=== PATIENT | female | born 1985 | race Caucasian/White ===

== ENCOUNTER 2017-06-05 06:07 | Emergency (ER) | payer BC ==
[2017-06-05] MEDS ORDERED: Metoclopramide IV* 5 MG/ML 2 ML VIAL IV ONE (06:33)
[2017-06-05] MEDS ORDERED: Famotidine IV* 10 MG/ML 2 ML (20 mg) IV ONE (06:33)
[2017-06-05] MEDS: NS 0.9% 1000 ML* 2,000 ML IV ONE (07:09)
[2017-06-05 07:31] LABS: ABS Basophils 0 10^3/ul (0-0.2); ABS Eosinophils 0.1 10^3/ul (0-0.6); ABS Lymphocytes 1.9 10^3/ul (1.0-4.8); ABS Monocytes 0.5 10^3/ul (0-0.8); ABS Neutrophils 5.2 10^3/ul (1.5-7.7); ABS Nucleated RBC 0 10^3/ul; Eosinophil % 1.5 % (0-6); Hematocrit 40 % (35-47); Hemoglobin 14.1 g/dl (12.0-16.0); Lymphocyte % 24.8 % (25-47); Mean Corpuscular HGB Conc 35 g/dl (31-36); Mean Corpuscular Hemoglobin 32 pg (27-31); Mean Corpuscular Volume 93 fL (80-97); Mean Platelet Volume 9 um3 (7.4-10.4); Nucleated Red Blood Cells % 0; Platelet Count 173 10^3/ul (150-450); Red Blood Count 4.36 10^6/ul (4.0-5.4); Red Cell Distribution Width 12 % (10.5-15); White Blood Count 7.8 10^3/ul (3.5-10.8)
[2017-06-05 07:48] LABS: EGFR Non-African American 98.6 (>60)
--- NOTE | 2017-06-05 08:29 | RAD ---
Indication: with pelvic pain. Real-time sonography of the pelvis was performed utilizing transabdominal technique. There is a single intrauterine gestation with a crown-rump length of 2.7 cm corresponding to gestational age of 9 weeks 4 days. Estimated date of delivery is January 04, 2018. heart activity is noted at 1 to 70 bpm. movement is noted. Amniotic fluid is within normal limits. Right ovary measures 4.6 x 2.3 x 2.1 cm. Left ovary measures 4.1 x 1.5 x 2.8 cm. Doppler interrogation demonstrates flow in both ovaries. IMPRESSION: No adnexal masses are noted. There is a single intrauterine gestation with a gestational age of 9 weeks 4 days. Estimated date of delivery is January 04, 2018.
--- NOTE | 2017-06-05 09:31 | ED ---
Jonathan Rodriguez Angela, scribed for Monica Dumont MD on 06/05/17 at 0744 . Progress - Progress Note Progress Note: This pt was signed out by Dr. Portillo, pending disposition, awaiting transvaginal US. Pt is a 31 y/o female presenting to [facility] c/o nausea and vomiting for a couple weeks. Pt notes she has her first ObGyn appointment tomorrow. Pt will be discharged to home in stable condition. She is advised to follow up with her ObGyn tomorrow. - Results/Orders Results/Orders: Transvaginal US, as read by radiologist: IMPRESSION: No adnexal masses are noted. There is a single intrauterine gestation with a gestational age of 9 weeks 4 days. Estimated date of delivery is January 04, [address]. Dr. Dumont has reviewed this radiology report. Re-Evaluation - Re-Evaluation First Eval Re-Evaluation Time: 08:58 Change: Improved Comment: Pt reports feeling better, without nausea and vomiting. Course/Dx - Course Course Of Treatment: Ultrasound shows IUP, gestational age of 9 weeks 4 days. Labs are normal. Pt will be discharged to home in stable condition. She is advised to follow up with her ObGyn tomorrow. - Diagnoses Provider Diagnoses: , Vomiting The documentation as recorded by the Jonathan alvarado Angela accurately reflects the service I personally performed and the decisions made by , Monica Dumont MD.
[2017-06-05 09:56] VITALS: BP 99/65
--- NOTE | 2017-06-07 06:06 | ED ---
Pamella Rodriguez Gabriel, scribilda for Francisco J Portillo MD on 06/05/17 at 0643 . GI/ HPI - HPI Summary HPI Summary: This patient is a 31 year old F presenting to [facility] accompanied by boyfriend with a chief complaint of n/v for a couple weeks. The patient rates the pain 5/ 10 in severity. Patient denies ABD pain, vaginal bleeding and cramps. She is recently . She took a home test and estimates she is about 9 weeks along. - History of Current Complaint Chief Complaint: EDNauseaVomitDiarrh Time Seen by Provider: 06/05/17 06:28 Stated Complaint: VOMITING, 9 WEEKS PREG Hx Obtained From: Patient Onset/Duration: Started Weeks Ago - 2, Still Present Timing: Constant Severity: Moderate Current Severity: Moderate Pain Intensity: 5 Associated Signs and Symptoms: Positive: Negative - abd pain vaginal bleeding and cramping, Other: - n/v - Allergy/Home Medications Allergies/Adverse Reactions: Allergies Allergy/AdvReac Type Severity Reaction Status Date / Time No Known Allergies Allergy Verified 06/05/17 06:13 PMH/Surg Hx/FS Hx/Imm Hx Cardiovascular History: Denies: Hx Myocardial Infarction Respiratory History: Denies: Hx Chronic Obstructive Pulmonary Disease (COPD) GI History: Denies: Hx Cirrhosis, Hx Crohn's Disease History: Denies: Hx Acute Renal Failure, Hx Benign Prostatic Hyperplasia Musculoskeletal History: Denies: Hx Arthritis Sensory History: Denies: Hx Eye Injury, Hx Legally Blind EENT History: Denies: Hx Deafness Neurological History: Denies: Hx CVA, Hx Dementia Infectious Disease History: No Infectious Disease History: Denies: Traveled Outside the [place] in Last 30 Days - Family History Known Family History: Negative: Seizure Disorder, Blood Disorder Review of Systems Positive: Vomiting, Nausea. Negative: Abdominal Pain Genitourinary: Negative - vagina bleeding and cramping All Other Systems Reviewed And Are Negative: Yes Physical Exam - Summary Physical Exam Summary: VITAL SIGNS: Reviewed. GENERAL: Patient is a well-developed and nourished female who is lying comfortable in the stretcher. Patient is not in any acute respiratory distress. HEAD AND FACE: No signs of trauma. No ecchymosis, hematomas or skull depressions. No sinus tenderness. EYES: PERRLA, EOMI x 2, No injected conjunctiva, no nystagmus. EARS: Hearing grossly intact. Ear canals and tympanic membranes are within normal limits. MOUTH: Oropharynx within normal limits. NECK: Supple, trachea is midline, no adenopathy, no JVD, no carotid bruit, no c- spine tenderness, neck with full ROM. CHEST: Symmetric, no tenderness at palpation LUNGS: Clear to auscultation bilaterally. No wheezing or crackles. CVS: Regular rate and rhythm, S1 and S2 present, no murmurs or gallops appreciated. ABDOMEN: Soft, non-tender. No signs of distention. No rebound no guarding, and no masses palpated. Bowel sounds are normal. EXTREMITIES: FROM in all major joints, no edema, no cyanosis or clubbing. NEURO: Alert and oriented x 3. No acute neurological deficits. Speech is normal and follows commands. SKIN: Dry and warm Triage Information Reviewed: Yes Vital Signs On Initial Exam: Initial Vitals Temp Pulse Resp BP Pulse Ox 98.4 F 101 16 132/79 99 06/05/17 06:09 06/05/17 06:09 06/05/17 06:09 06/05/17 06:09 06/05/17 06:09 Vital Signs Reviewed: Yes Diagnostics - Vital Signs Vital Signs Temp Pulse Resp BP Pulse Ox 06/05/17 06:09 98.4 F 101 16 132/79 99 - Laboratory Lab Results: Lab Results 06/05/17 06/05/17 Range/Units 06:59 06:59 WBC 7.8 (3.5-10.8) 10^3/ul RBC 4.36 (4.0-5.4) 10^6/ul Hgb 14.1 (12.0-16.0) g/dl Hct 40 (35-47) % MCV 93 (80-97) fL MCH 32 H (27-31) pg MCHC 35 (31-36) g/dl RDW 12 (10.5-15) % Plt Count 173 (150-450) 10^3/ul MPV 9 (7.4-10.4) um3 Neut % (Auto) 66.3 (38-83) % Lymph % (Auto) 24.8 L (25-47) % [place] % (Auto) 7.0 (1-9) % Eos % (Auto) 1.5 (0-6) % Baso % (Auto) 0.4 (0-2) % Absolute Neuts (auto) 5.2 (1.5-7.7) 10^3/ul Absolute Lymphs (auto) 1.9 (1.0-4.8) 10^3/ul Absolute Monos (auto) 0.5 (0-0.8) 10^3/ul Absolute Eos (auto) 0.1 (0-0.6) 10^3/ul Absolute Basos (auto) 0 (0-0.2) 10^3/ul Absolute Nucleated RBC 0 10^3/ul Nucleated RBC % 0 Sodium 134 (133-145) mmol/L Potassium 3.7 (3.5-5.0) mmol/L Chloride 103 (101-111) mmol/L Carbon Dioxide 24 (22-32) mmol/L Anion Gap 7 (2-11) mmol/L BUN 13 (6-24) mg/dL Creatinine 0.69 (0.51-0.95) mg/dL Est GFR ( Amer) 126.8 (>60) Est GFR (Non-Af Amer) 98.6 (>60) BUN/Creatinine Ratio 18.8 (8-20) Glucose 96 (70-100) mg/dL Calcium 9.2 (8.6-10.3) mg/dL Total Bilirubin 0.70 (0.2-1.0) mg/dL AST 20 (13-39) U/L ALT 17 (7-52) U/L Alkaline Phosphatase 51 (34-104) U/L Total Protein 6.6 (6.4-8.9) g/dL Albumin 4.1 (3.2-5.2) g/dL Globulin 2.5 (2-4) g/dL Albumin/Globulin Ratio 1.6 (1-3) Beta HCG, Quant 426438.00 mIU/mL Result Diagrams: 06/05/17 06:59 06/05/17 06:59 Lab Statement: Any lab studies that have been ordered have been reviewed, and results considered in the medical decision making process. Re-Evaluation - Re-Evaluation First Eval Re-Evaluation Time: 08:58 Change: Improved Comment: Pt reports feeling better, without nausea and vomiting. GIGU Course/Dx - Diagnoses Provider Diagnoses: , Vomiting Discharge - Discharge Plan Condition: Stable Disposition: HOME Discharge Disposition Comment: Patient is signed out to Dr. Dumont, pending disposition, awaiting US Prescriptions: Ondansetron ODT TAB* [Zofran 4 MG Odt TAB*] 4 mg PO Q8H PRN #20 tab.odt MDD 3 PRN Reason: vomiting Patient Education Materials: Nausea and Vomiting in (ED), First Trimester (ED) Forms: *Work Release Referrals: Dilma SILVERMAN,Antoinette Chen [Primary Care Provider] - Additional Instructions: return if worse or any new symptoms. Take all medications as previously instructed. Drink plenty of fluids. The documentation as recorded by the Pamella alvarado Gabriel accurately reflects the service I personally performed and the decisions made by me, Francisco J Portillo MD.
== END 2017-06-05 09:54 | disposition home or self-care (01) ==
LOC: ED 06:07
DX: R11.2 Nausea with vomiting, unspecified (principal); Z34.91 Encounter for supervision of normal pregnancy, unspecified, first trimester
CPT/HCPCS: 36415; 76801; 80053; 84702; 85025; 96374; 96375; 99283; J2765

== ENCOUNTER 2018-01-04 23:50 | Inpatient (IN) | payer BC ==
--- NOTE | 2018-01-05 01:01 | HP ---
General Information - General Information Maternal Age: 32 Grav: 2 Para: 0 SAB: 0 IEA: 0 Estimated Due Date: 01/04/18 Determined By: Early Ultrasound Maternal Blood Type and Rh: O Positive - Results this Serology/RPR Result: Non-Reactive Rubella Result: Non-Immune HBsAg Result: Negative HIV Result: Negative GBS Culture Result: Negative Past Medical History Delivery History: See Records - Primiparous Pertinent Past Medical History: Non-Contributory Pertinent Past Surgical History: See Records - wisdom tooth extraction Pertinent Family History: Non-Contributory - Antepartal Records Antepartal Records: Reviewed, Uncomplicated Review of Systems Constitutional: Uncomfortable CV Complaint: No Respiratory: Shortness of Breath: No Gastrointestinal: No Nausea/Vomiting Genitourinary: Leaking Fluid, No Dysuria, No Bleeding Musculoskeletal: Contractions Neurological: No Headache, No Visual Changes Movement: Normal Exam Allergies/Adverse Reactions: Allergies No Known Allergies Allergy (Verified 06/05/17 06:13) T-98.1, P-64, R-18, BP-109/68, O2-99% - Measurements Height: 5 ft 4 in Weight: 68.492 kg Weight in lbs: 151.020130 Body Mass Index (BMI): 25.9 Pre- Weight: 56.699 kg Weight Gained This : 26 lbs and 0 ozs - Exam Breast: Breast Exam Deferred CVA: No CVA Tenderness Extremities: No Edema Heart: Normal Rhythm/Heart Sounds HEENT: No Significant Findings Lungs: Clear Bilaterally Rectal: Rectal Exam Deferred Reflexes: DTR 2+ Thyroid: No Thyromegaly - Abdominal Exam Abdomen Exam: Non-Tender, Fundal Height Consistent with Dates - Ultrasound/Biophysical Profile Ultrasound Status: Not Done Targeted Exam Findings See L&D Outpatient Visit Provider Note for Findings: N/A Estimated Weight: 7# Cervical Exam: 3cm Effacement: 100% Station: 0 Presenting Part: Vertex Membrane Status: SROM Amniotic Fluid Evaluation: Gross Rupture Bleeding/Discharge: None EFM Findings - External Monitor Findings Baseline Heart Rate: 125 External Monitor Findings: Accelerations Present, No Pattern of Variable or Late Decelerations, Variability Moderate, Baseline Stable Contractions: Regular, Strong, 45-90 Seconds Contraction Frequency: 2-3 minutes Assessment/Plan - Assessment 32 year old at 40 1/7 weeks gestation with ruptured membranes in active labor, no evidence of acidemia - Plan Plan: Admit - Anticipate Vaginal Delivery - Date/Time of Admission Date of Admission: 01/05/18 Time of Admission: 00:21
[2018-01-05 01:22] LABS: ABS Basophils 0.1 10^3/ul (0-0.2); ABS Eosinophils 0 10^3/ul (0-0.6); ABS Lymphocytes 2.5 10^3/ul (1.0-4.8); ABS Monocytes 0.8 10^3/ul (0-0.8); ABS Neutrophils 7.5 10^3/ul (1.5-7.7); ABS Nucleated RBC 0 10^3/ul; Eosinophil % 0.4 % (0-6); Hematocrit 40 % (35-47); Hemoglobin 13.7 g/dl (12.0-16.0); Lymphocyte % 23.2 % (25-47); Mean Corpuscular HGB Conc 35 g/dl (31-36); Mean Corpuscular Hemoglobin 33 pg (27-31); Mean Corpuscular Volume 96 fL (80-97); Mean Platelet Volume 10.7 um3 (7.4-10.4); Nucleated Red Blood Cells % 0; Platelet Count 152 10^3/ul (150-450); Red Blood Count 4.14 10^6/ul (4.00-5.40); Red Cell Distribution Width 13 % (10.5-15)
[2018-01-05] MEDS ORDERED: OBEPIDURAL* 250 ML EPIDURAL ONE (01:38)
[2018-01-05] MEDS ORDERED: Phenylephrine IV* 40 MCG/ML 10 ML SYRINGE IV PUSH PRN ×2 (02:25)
[2018-01-05] MEDS ORDERED: EPHEDrine (Pressors)* 50 MG/ML VIAL IV PUSH PRN ×2 (02:25)
[2018-01-05] MEDS ORDERED: Famotidine TAB* 20 MG PO PRN (02:25)
[2018-01-05] MEDS ORDERED: Sodium Citrate/Citric Acid* 15 ML UDC PO PRN (02:25)
[2018-01-05] MEDS ORDERED: fentaNYL* 50 MCG/ML 2 ML VIAL (100 MCG VIAL) ONE (02:38)
[2018-01-05] MEDS ORDERED: OBEPIDURAL* 250 ML EPIDURAL SCH (03:00)
[2018-01-05] MEDS ORDERED: Oxytocin in LR* 20 UNITS/1,000 ML BAG IVPB ONE (10:25)
[2018-01-05] MEDS ORDERED: Glycerin ADULT SUPP PR PRN (11:46)
[2018-01-05] MEDS ORDERED: Dibucaine 1% 28.35 GM TUBE PR PRN (11:46)
[2018-01-05] MEDS ORDERED: Witch Hazel PAD* JAR TOPICAL PRN (11:46)
--- NOTE | 2018-01-05 11:53 | PROCNOTE ---
[facility] OB: Delivery Note - Delivery A Date of : 01/05/18 Time of : 11:29 [place] Sex: Male Weight at : 7 lb Score 1 Minute: 9 Score 5 Minutes: 9 Gestational Age in Weeks and Days at Delivery: 40 Weeks and 1 Days Delivery Method: Spontaneous Vaginal Labor: Spontaneous Did Patient attempt ?: N/A, No Previous Amniotic Fluid: Clear Estimated Blood Loss: 300 Anesthesia/Analgesia: CEI for Labor Anesthesia Comment: Dr. Barr Delivered By: Sawyer Gonzalez - Nursery Level of Nursery: Regular/Bedside - Perineum Perineal Injury: None/Intact Perineal Repair: None - Additional Delivery Notes Additional Delivery Notes: Pt admitted in labor with expected progression to complete. Length of labor 14 hours, 35 min. Pushed x 1 hour, 24 min. Category II FHT with pushing. Variable decels down to 80bpm. Recovered well between UCs with O2 by mask and increased IV fluids. Moderate variability maintained throughout second stage. liveborn male. Slow, controlled delivery of head. OA to BILLIE. Shoulders followed with strong maternal push. [place] vigorous with spontaneous cry. HR> 110bpm. Delivered to maternal abdomen. Cord clamped x 2 and cut by FOB when pulsations ceased. Spontaneous delivery intact placenta. Membranes complete. Fundus firm to massage with IV pitocin infusing and remained firm. Perineum intact. No repair needed as above. EBL 300mL. At time of note mother and in stable condition. Planning to breast feed.
[2018-01-05] MEDS ORDERED: Oxytocin in LR* 20 UNITS/1,000 ML BAG IVPB SCH (12:00)
[2018-01-05] MEDS: Ibuprofen TAB* 600 MG PO PRN ×2 (12:53→18:12)
[2018-01-05] MEDS: Docusate CAP* 100 MG PO SCH ×2 (12:53→21:26)
[2018-01-06] MEDS: Acetaminophen TAB* 325 MG PO PRN ×4 (01:55→18:44)
[2018-01-06] MEDS: Ibuprofen TAB* 600 MG PO PRN ×4 (01:55→22:31)
[2018-01-06] MEDS: Simethicone TAB* 80 MG TAB.CHEW PO SCH ×2 (04:51→11:29)
[2018-01-06 06:14] LABS: ABS Basophils 0.1 10^3/ul (0-0.2); ABS Eosinophils 0.1 10^3/ul (0-0.6); ABS Lymphocytes 2.1 10^3/ul (1.0-4.8); ABS Monocytes 0.6 10^3/ul (0-0.8); ABS Neutrophils 8.7 10^3/ul (1.5-7.7); ABS Nucleated RBC 0 10^3/ul; Eosinophil % 0.6 % (0-6); Hematocrit 29 % (35-47); Lymphocyte % 17.8 % (25-47); Mean Corpuscular HGB Conc 35 g/dl (31-36); Mean Corpuscular Hemoglobin 33 pg (27-31); Mean Corpuscular Volume 97 fL (80-97); Mean Platelet Volume 9.4 um3 (7.4-10.4); Nucleated Red Blood Cells % 0; Platelet Count 104 10^3/ul (150-450); Red Blood Count 2.99 10^6/ul (4.00-5.40); Red Cell Distribution Width 13 % (10.5-15); White Blood Count 11.5 10^3/ul (3.5-10.8)
[2018-01-06] MEDS: Docusate CAP* 100 MG PO SCH ×3 (08:22→22:31)
[2018-01-06] MEDS ORDERED: Measles, Mumps,Rubella VACC* 0.5 ML/VIAL SUBCUT ONE (09:00)
[2018-01-06] MEDS: Ferrous Gluconate TAB* 324 MG TAB PO SCH ×2 (12:50→22:31)
--- NOTE | 2018-01-06 16:14 | PTEDU ---
Patient Name: MELY GURROLA GALILEO MELY selected video: BBOB: Nurturing Your Gorgeous &Growing Baby by to view on 01/06/2018 at 4:13:35 PM [id number]
[2018-01-07] MEDS: Ferrous Gluconate TAB* 324 MG TAB PO SCH (07:51)
[2018-01-07] MEDS: Ibuprofen TAB* 600 MG PO PRN ×2 (07:52→14:28)
[2018-01-07] MEDS: Docusate CAP* 100 MG PO SCH ×2 (07:52→14:28)
[2018-01-07 08:10] VITALS: BP 105/67
--- NOTE | 2018-01-07 15:45 | PTEDU ---
Patient Name: MELY GURROLA MELVA GURROLAINA selected video: BBOB: Bonding Through Infant Massage to view on 01/07/2018 at 3:44:51 PM from [id number]
== END 2018-01-07 18:23 | disposition home or self-care (01) | DRG 560 ==
LOC: MCHOBOUT 23:50 → MCHOB 01-05 00:22
PROVIDERS: ADMIT Midwife; ATTEND Midwife
PROC: 10E0XZZ Delivery of Products of Conception, External Approach (ICD-10-PCS; principal; 2018-01-05)
DX: O48.0 Post-term pregnancy (principal); O90.81 Anemia of the puerperium; D64.9 Anemia, unspecified; Z3A.40 40 weeks gestation of pregnancy; Z37.0 Single live birth
CPT/HCPCS: 36415; 85025; 86850; 86900; 86901; 90707; A9270-GY; J3010

== ENCOUNTER 2019-09-23 17:39 | Inpatient (IN) | payer BC ==
[2019-09-23 18:36] LABS: Urine Benzodiazepine Screen None Detected (None Detect); Urine Opiates Screen None Detected (None Detect)
[2019-09-23 19:59] LABS: Hematocrit 37 % (35-47); Hemoglobin 12.8 g/dL (12.0-16.0); Mean Corpuscular HGB Conc 35 g/dL (31-36); Mean Corpuscular Hemoglobin 33 pg (27-31); Mean Corpuscular Volume 94 fL (80-97); Mean Platelet Volume 9.7 fL (7.4-10.4); Platelet Count 152 10^3/uL (150-450); Red Cell Distribution Width 13 % (10-15); White Blood Count 11.3 10^3/uL (3.5-10.8)
[2019-09-23 20:01] LABS: Urine Appearance Clear; Urine Bilirubin Negative (Negative); Urine Blood 3+ (Negative); Urine Color Yellow; Urine Glucose Negative (Negative); Urine Ketones 1+ (Negative); Urine Nitrite Negative (Negative); Urine Protein Negative (Negative); Urine Urobilinogen Negative (Negative)
[2019-09-23 20:04] LABS: Urine Bacteria Absent (Absent); Urine Red Blood Cell 3+(>10/hpf) (Absent); Urine Squamous Epithelial Cell Present (Absent); Urine White Blood Cell 3+(>20/hpf) (Absent)
[2019-09-23 20:07] LABS: Platelet Count 152 10^3/ul (150-450)
[2019-09-23 20:20] LABS: Albumin 3.7 g/dL (3.2-5.2); Albumin/Globulin Ratio 1.3 (1-3); BUN/Creatinine Ratio 26.2 (8-20); Calcium 8.6 mg/dL (8.6-10.3); EGFR African American 135.9 (>60); EGFR Non-African American 112.3 (>60); Globulin 2.9 g/dL (2-4); Potassium 3.7 mmol/L (3.5-5.0); Total Bilirubin 0.4 mg/dL (0.2-1.0); Total Protein 6.6 g/dL (6.4-8.9); Uric Acid 5.2 mg/dL (2.3-6.6)
[2019-09-23 20:22] LABS: Activated Partial Thrombo Time 27.3 seconds (26.0-38.0); Fibrinogen 489.9 mg/dL (110.8-404.3); INR 0.89 (0.82-1.09)
[2019-09-23] MEDS ORDERED: Penicillin G Potassium IV* 5 MILLION.UNITS VIAL ONE (20:35)
[2019-09-23] MEDS ORDERED: Lactated Ringers 1000 ML Bag* 1,000 ML IV ONE (20:45)
[2019-09-23] MEDS ORDERED: Buffered Lidocaine 1% SYRIN* 1 ML/SYRINGE INTRADERM ONE (20:45)
[2019-09-23 20:59] LABS: Schistocytes ABSENT
[2019-09-23] MEDS ORDERED: Penicillin G Potassium IV* 5,000,000 UNITS in NS 0.9% 100 ML* 100 ML IVPB ONE (21:00)
--- NOTE | 2019-09-23 21:15 | HP ---
General Information - Reason for Visit Vaginal bleeding and contractions - General Information Maternal Age: 33 Grav: 3 Para: 1 SAB: 0 IEA: 1 Estimated Due Date: 10/11/19 Determined By: Early Ultrasound Maternal Blood Type and Rh: O Positive - Results this Serology/RPR Result: Non-Reactive Rubella Result: Immune HBsAg Result: Negative HIV Result: Negative GBS Culture Result: Positive Past Medical History Delivery History: Hx Uncomplicated Vaginal Delivery - SVB 01/2018 Pertinent Past Medical History: Non-Contributory Pertinent Past Surgical History: See Records Past Surgical History Comment: [place] teeth Pertinent Family History: See Records Family History Comment: breast cancer dementia diabetes kidney disease - Antepartal Records Antepartal Records: Reviewed, Complicated by: - GBS Review of Systems Constitutional: Uncomfortable CV Complaint: No Respiratory: Shortness of Breath: No Gastrointestinal: No Nausea/Vomiting, Normal Bowel Movement Genitourinary: Bleeding, Leaking Fluid Musculoskeletal: Contractions Neurological: No Headache, No Visual Changes Movement: Normal Exam Allergies/Adverse Reactions: Allergies No Known Allergies Allergy (Verified 01/05/18 01:25) Lab Values - Entire Visit: Laboratory Tests 09/23/19 09/23/19 09/23/19 17:55 19:45 19:45 WBC 11.3 H RBC 3.90 Hgb 12.8 Hct 37 MCV 94 MCH 33 H MCHC 35 RDW 13 Plt Count 152 MPV 9.7 Schistocytes INR (Anticoag Therapy) APTT Fibrinogen D-Dimer, Quantitative Sodium 135 Potassium 3.7 Chloride 106 Carbon Dioxide 20 L Anion Gap 9 BUN 16 Creatinine 0.61 Est GFR ( Amer) 135.9 Est GFR (Non-Af Amer) 112.3 BUN/Creatinine Ratio 26.2 H Glucose 82 Uric Acid 5.2 Calcium 8.6 Total Bilirubin 0.40 AST 21 ALT 14 Alkaline Phosphatase 171 H Total Protein 6.6 Albumin 3.7 Globulin 2.9 Albumin/Globulin Ratio 1.3 Urine Color Urine Appearance Urine pH Ur Specific [place] Urine Protein Urine Ketones Urine Blood Urine Nitrate Urine Bilirubin Urine Urobilinogen Ur Leukocyte Esterase Urine WBC (Auto) Urine RBC (Auto) Ur Squamous Epith Cells Urine Bacteria Urine Glucose Vag Amniotic Fld Detect Urine Opiates Screen None detected Ur Barbiturates Screen None detected Ur Phencyclidine Scrn None detected Ur Amphetamines Screen None detected U Benzodiazepines Scrn None detected Urine Cocaine Screen None detected U Cannabinoids Screen None detected Blood Type Antibody Screen 09/23/19 09/23/19 09/23/19 19:45 19:45 19:45 WBC RBC Hgb Hct MCV MCH MCHC RDW Plt Count 152 MPV Schistocytes Absent INR (Anticoag Therapy) 0.89 APTT 27.3 Fibrinogen 489.9 H D-Dimer, Quantitative 702 H Sodium Potassium Chloride Carbon Dioxide Anion Gap BUN Creatinine Est GFR ( Amer) Est GFR (Non-Af Amer) BUN/Creatinine Ratio Glucose Uric Acid Calcium Total Bilirubin AST ALT Alkaline Phosphatase Total Protein Albumin Globulin Albumin/Globulin Ratio Urine Color Yellow Urine Appearance Clear Urine pH 6.0 Ur Specific [place] 1.010 Urine Protein Negative Urine Ketones 1+ A Urine Blood 3+ A Urine Nitrate Negative Urine Bilirubin Negative Urine Urobilinogen Negative Ur Leukocyte Esterase Negative Urine WBC (Auto) 3+(>20/hpf) A Urine RBC (Auto) 3+(>10/hpf) A Ur Squamous Epith Cells Present A Urine Bacteria Absent Urine Glucose Negative Vag Amniotic Fld Detect Urine Opiates Screen Ur Barbiturates Screen Ur Phencyclidine Scrn Ur Amphetamines Screen U Benzodiazepines Scrn Urine Cocaine Screen U Cannabinoids Screen Blood Type O Positive Antibody Screen Negative 09/23/19 19:45 WBC RBC Hgb Hct MCV MCH MCHC RDW Plt Count MPV Schistocytes INR (Anticoag Therapy) APTT Fibrinogen D-Dimer, Quantitative Sodium Potassium Chloride Carbon Dioxide Anion Gap BUN Creatinine Est GFR ( Amer) Est GFR (Non-Af Amer) BUN/Creatinine Ratio Glucose Uric Acid Calcium Total Bilirubin AST ALT Alkaline Phosphatase Total Protein Albumin Globulin Albumin/Globulin Ratio Urine Color Urine Appearance Urine pH Ur Specific [place] Urine Protein Urine Ketones Urine Blood Urine Nitrate Urine Bilirubin Urine Urobilinogen Ur Leukocyte Esterase Urine WBC (Auto) Urine RBC (Auto) Ur Squamous Epith Cells Urine Bacteria Urine Glucose Vag Amniotic Fld Detect Positive Urine Opiates Screen Ur Barbiturates Screen Ur Phencyclidine Scrn Ur Amphetamines Screen U Benzodiazepines Scrn Urine Cocaine Screen U Cannabinoids Screen Blood Type Antibody Screen - Measurements Height: 5 ft 4 in Weight: 141 lb Weight in lbs: 141.628675 Body Mass Index (BMI): 24.2 Pre- Weight: 125 lb Weight Gained This : 16 lbs and 0 ozs - Exam Breast: Breast Exam Deferred CVA: No CVA Tenderness Extremities: No Edema Thyroid: - - WNL @ entry to care - Abdominal Exam Abdomen Exam: Non-Tender, Fundal Height Consistent with Dates - Ultrasound/Biophysical Profile Ultrasound Status: Not Done Targeted Exam Findings Estimated Weight: 7lb Cervical Exam: 2cm Effacement: 60% Station: -1 Presenting Part: Vertex Membrane Status: Leaking Amniotic Fluid Evaluation: Positive ROM Plus Bleeding/Discharge: Amber bleeding EFM Findings - External Monitor Findings Baseline Heart Rate: 125 External Monitor Findings: Accelerations Present, No Pattern of Variable or Late Decelerations, Variability Moderate Contractions: Regular, Mild, Moderate, 45-90 Seconds Contraction Frequency: q 2-5 min Assessment/Plan - Assessment IUP @ 37+3 weeks gestation with rupture of membranes and amber bleeding in early labor. No evidence acidemia. - Obstetrical Risk Factors Obstetrical Risk Factors: GBS Positive - Plan Plan: Admit - Anticipate Vaginal Delivery Plan Comment: Admit to L&D. Labwork pending. Anticipate SVB. - Date/Time of Admission Date of Admission: 09/23/19 Time of Admission: 20:27
[2019-09-24] MEDS ORDERED: Promethazine INJ(RESTRICTED)* 25 MG/ML 1 ML VIAL IV PRN (00:30)
[2019-09-24] MEDS ORDERED: Morphine 10 MG/ML VIAL (1 ml) IV ONE (00:30)
--- NOTE | 2019-09-24 00:30 | PN ---
Progress Note - Progress Note Date of Service: 09/24/19 Note: S: Patient reports feeling contractions but they are still fairly mild. Tired and feeling like she would like to sleep but struggling because of discomfort. O: VE deferred FHT 125, +accels, no decels, mod asmita UCs q 2-5 min VSS, afebrile A: IUP @ 37+4 weeks gestation Ruptured membranes No evidence acidemia P: PARQ discussion therapeutic rest with morphine/phenergan. Patient in agreement. Plan to reassess as needed.
[2019-09-24] MEDS: Penicillin G Potassium IV* 3,000,000 UNITS in NS 0.9% 100 ML* 100 ML IVPB SCH ×6 (01:34→21:19)
[2019-09-24] MEDS ORDERED: Oxytocin in LR* 20 UNITS/1,000 ML BAG IVPB ONE (06:38)
[2019-09-24] MEDS ORDERED: Oxytocin in LR* 20 UNITS/1,000 ML BAG IVPB SCH ×2 (07:00→20:00)
--- NOTE | 2019-09-24 07:51 | PN ---
Progress Note - Progress Note Date of Service: 09/24/19 Note: S: Feeling comfortable, got some sleep. Still feeling "dozy" from medications. O: VE deferred FHT 130, +accels, no decels, mod asmita UCs q 3-6 min VSS, afebrile A: IUP @ 37+4 weeks gestation with vaginal bleeding, spontaneous rupture of membranes No evidence acidemia P: Recommend low-dose pitocin and patient in agreement. Will initiate and titrate per protocol. Expect progression to active labor. Report to oncoming physician relations representative, Hina Nation CNM to continue management.
[2019-09-24] MEDS: Lactated Ringers 1000 ML Bag* 1,000 ML IV SCH ×2 (09:02→21:16)
--- NOTE | 2019-09-24 12:13 | PN ---
Progress Note - Progress Note Date of Service: 09/24/19 Note: S: Has been sleeping on and off. States contractions are worse while in bed and less while standing. O: B/P: 116/65, P: 91, R: 18, T: 99.1 FHR: baseline 135, moderate variability, + accelerations, no decelerations UCs: q 2-3 min, moderate to palpation. VE: 2/80/-2, posterior. [place]-tinged fluid. SROM x 19 hrs. A: IUP at 37 4/7 weeks Category I FHR, no evidence of metabolic acidemia No evidence of chorioamnionitis Not yet in labor P: Discontinue pitocin, if UCs space out will give 50 mcg misoprostol PO Continue GBS prophylaxis per protocol Reassess PRN Anticipate SVB
[2019-09-24] MEDS ORDERED: Misoprostol TAB* 100 MCG PO ONE (13:22)
--- NOTE | 2019-09-24 19:37 | PN ---
Progress Note - Progress Note Date of Service: 09/24/19 Note: S: Feeling UCs more intensely than before O: B/P: 112/67, P: 76, R: 20, T: 99.3 FHR: baseline 135, moderate variability, +accelerations, no decelerations UCs: q 3-6, moderate to palpation VE: 2/80/-1, blood-tinged fluid SROM x 27.5 hrs GBS positive A: IUP at 37 4/7 weeks Category I FHR, no evidence of metabolic acidemia Rodriguez score: 4 P: Discussed pitocin augmentation, Emperatriz agrees Low-dose protocol, start at 2 mu/min Continue GBS prophylaxis per protocol reassess PRN Anticipate SVB
[2019-09-24] MEDS ORDERED: OBEPIDURAL* 250 ML EPIDURAL ONE (20:44)
[2019-09-24] MEDS ORDERED: Bupivacaine 0.25% SDV PF* 10 ML VIAL INJ ONE (20:47)
--- NOTE | 2019-09-24 20:47 | PN ---
Progress Note - Progress Note Date of Service: 09/24/19 Note: Quick note: Emperatriz is uncomfortable with UCs, requesting epidural. Dr. Peter paged and in-house, will be down momentarily. Will reassess PRN once comfortable
[2019-09-24] MEDS ORDERED: Famotidine TAB* 20 MG PO PRN (21:10)
[2019-09-24] MEDS ORDERED: Lactated Ringers 1000 ML Bag* 1,000 ML IV ONE (21:10)
[2019-09-24] MEDS ORDERED: EPHEDrine (Pressors)* 50 MG/ML VIAL IV PUSH PRN (21:10)
[2019-09-24] MEDS ORDERED: Phenylephrine 40 MCG/ML SYRINGE IV PUSH PRN (21:10)
[2019-09-24] MEDS ORDERED: Sodium Citrate/Citric Acid* 15 ML UDC PO PRN (21:10)
[2019-09-24] MEDS ORDERED: Lactated Ringers 1000 ML Bag* 1,000 ML IV SCH (22:00)
[2019-09-24] MEDS ORDERED: OBEPIDURAL* 250 ML EPIDURAL SCH (22:00)
[2019-09-25] MEDS: Penicillin G Potassium IV* 3,000,000 UNITS in NS 0.9% 100 ML* 100 ML IVPB SCH ×3 (01:04→11:54)
--- NOTE | 2019-09-25 02:32 | PN ---
Progress Note - Progress Note Date of Service: 09/25/19 Note: S: resting comfortably with epidural. O: B/P: 119/90, P: 67, R: 20, T: 98.3 FHR: baseline 120, minimal to moderate variability, +accelerations, no decelerations UCs: q 1-5 min, moderate VE: 4.5/90/-1, scant bloody fluid SROM x 33.5 hrs A: IUP at 37 4/7 weeks Category I FHR, no evidence of metabolic acidemia Active labor GBS positive P: Continue pitocin per protocol Continue GBS prophylaxis Continue position changes to promote descent Reassess PRN Anticipate SVB
[2019-09-25] MEDS ORDERED: Oxytocin in LR* 20 UNITS/1,000 ML BAG IVPB SCH (06:50)
[2019-09-25] MEDS ORDERED: Acetaminophen TAB* 325 MG PO PRN (07:08)
[2019-09-25] MEDS ORDERED: Glycerin ADULT SUPP PR PRN (07:08)
[2019-09-25] MEDS ORDERED: Dibucaine 1% 28.35 GM TUBE PR PRN (07:08)
[2019-09-25] MEDS ORDERED: Witch Hazel PAD* JAR TOPICAL PRN (07:08)
--- NOTE | 2019-09-25 07:41 | PROCNOTE ---
[facility] OB: Delivery Note - Delivery A Date of : 09/25/19 Time of : 06:43 [place] Sex: Male Score 1 Minute: 9 Score 5 Minutes: 9 Gestational Age in Weeks and Days at Delivery: 37 Weeks and 5 Days Delivery Method: Spontaneous Vaginal Labor: Spontaneous Did Patient attempt ?: N/A, No Previous Amniotic Fluid: Bloody Estimated Blood Loss: 400 Anesthesia/Analgesia: CEI for Labor Anesthesia Comment: Dr. Peter Delivered By: Nichol Nation - Nursery Level of Nursery: Regular/Bedside - Perineum Perineal Injury: Abrasion Only - Not Repaired - Events Delivery Events of Note: Pitocin During Labor, Pitocin Only After Delivery, Full Course of Antibiotics - for GBS prophylaxis, ROM > 24 Hours - Additional Delivery Notes Additional Delivery Notes: experienced SROM to blood-tinged fluid on 09/22 at 1650. Augmentation with misoprostol and pitocin led to active labor on 09/24. Progressed to complete and complete, began pushing at 0623 with good maternal effort. Slow, controlled delivery of head OA to ANDERSON at 0643. Shoulders followed with strong maternal effort. Male delivered to maternal abdomen, spontaneous cry, HR > 110, Apgars 9 and 9. Cord doubly clamped and cut by FOB once pulsations ceased, about 5 minutes. Intact [place] placenta delivered at 0652, moderate sized clot expressed and then fundus firm with massage. Pitocin titrated to 150 cc. Perineum and vagina carefully inspected, intact and no repair necessary. Mother and infant stable at time of note, feeding plan is breast. EBL = 400
[2019-09-25] MEDS ORDERED: Lactated Ringers 1000 ML Bag* 1,000 ML IV SCH (08:00)
[2019-09-25] MEDS ORDERED: Simethicone TAB* 80 MG TAB.CHEW PO SCH (08:30)
[2019-09-25] MEDS: Docusate CAP* 100 MG PO SCH ×3 (08:46→21:33)
[2019-09-25] MEDS: Ibuprofen TAB* 600 MG PO PRN ×3 (08:46→21:33)
[2019-09-26] MEDS: Ibuprofen TAB* 600 MG PO PRN ×3 (03:34→15:43)
[2019-09-26 06:58] LABS: ABS Eosinophils 0.1 10^3/ul (0-0.6); ABS Lymphocytes 1.9 10^3/ul (1.0-4.8); ABS Monocytes 0.3 10^3/ul (0-0.8); ABS Neutrophils 4.6 10^3/ul (1.5-7.7); Eosinophil % 1.6 %; Hematocrit 30 % (35-47); Hemoglobin 10.5 g/dL (12.0-16.0); Lymphocyte % 27.8 %; Mean Corpuscular HGB Conc 35 g/dL (31-36); Mean Corpuscular Hemoglobin 34 pg (27-31); Mean Corpuscular Volume 96 fL (80-97); Mean Platelet Volume 9.4 fL (7.4-10.4); Platelet Count 114 10^3/uL (150-450); Red Blood Count 3.12 10^6 /uL (3.70-4.87); Red Cell Distribution Width 14 % (10-15)
[2019-09-26 08:25] VITALS: BP 103/66
[2019-09-26] MEDS ORDERED: Ferrous Gluconate TAB* 324 MG TAB PO SCH (09:00)
[2019-09-26] MEDS: Docusate CAP* 100 MG PO SCH ×2 (09:41→14:17)
== END 2019-09-26 16:44 | disposition home or self-care (01) | DRG 560 ==
LOC: MCHOBOUT 17:39 → MCHOB 20:27 → UNDODISIN 09-26 16:45
PROVIDERS: ADMIT Midwife; ATTEND Midwife
PROC: 10E0XZZ Delivery of Products of Conception, External Approach (ICD-10-PCS; principal; 2019-09-25)
DX: O99.824 Streptococcus B carrier state complicating childbirth (principal); Z37.0 Single live birth; O70.0 First degree perineal laceration during delivery; O42.02 Full-term premature rupture of membranes, onset of labor within 24 hours of rupture; Z3A.37 37 weeks gestation of pregnancy; O99.89 Other specified diseases and conditions complicating pregnancy, childbirth and the puerperium; R33.9 Retention of urine, unspecified
CPT/HCPCS: 36415; 80053; 80307; 81003; 81015; 83030; 84112; 84550; 85025; 85027; 85049; 85362; 85384; 85610; 85730; 86850; 86900; 86901; 87077; 87086; A9270-GY; G0480; J2270; J2540; J2550; J3490; S0191